=== PATIENT | male | born 1985 | race African-American/Black ===

== ENCOUNTER 2017-01-07 19:49 | Inpatient (IN) | payer MEDICAID, OTHER ==
[~2017-01-07] VITALS: Ht 188 cm; Wt 73.0 kg
[2017-01-07] MEDS ORDERED: SODIUM CHLORIDE 0.9% 1,000 ML IV ONE (23:52)
[2017-01-07] MEDS ORDERED: ONDANSETRON HCL 4MG/2ML VIAL IV STA (23:52)
[2017-01-08 00:33] LABS: CHLORIDE 99 mEq/L (98-107); HEMOGLOBIN. 16.6 g/dL (14.0-18.0); MEAN CORPUSCULAR VOLUME 88.3 fL (80.0-94.0); MEAN PLATELET VOLUME 8.9 fl (7.4-10.4); PLATELET 224 x1000/uL (130-400); RED BLOOD CELL COUNT 5.55 mill/uL (4.7-6.1); RED CELL DISTRIBUTION WIDTH 14.5 % (11.6-14.6)
[2017-01-08 00:41] LABS: CARBON DIOXIDE 29 mEq/L (21-32)
[2017-01-08 00:55] LABS: INR 1.1; PROTHROMBIN TIME 11.7 sec (9.4-11.6)
[2017-01-08 01:00] LABS: CLARITY URINE CLOUDY (CLEAR); COLOR URINE ORANGE (YELLOW); GLUCOSE URINE TRACE (NEGATIVE); KETONES URINE 1+ (NEGATIVE); LEUKOCYTE ESTERASE URINE 1+ (NEGATIVE); NITRITE URINE POSITIVE (NEGATIVE); OCCULT BLOOD URINE 2+ (NEGATIVE); PH URINE 6.5 (4.5-8.0); PROTEIN URINE 3+ (NEGATIVE); SPECIFIC GRAVITY URINE 1.046 (1.005-1.030)
[2017-01-08] MEDS ORDERED: KETOROLAC 30MG/ML VIAL IV ONE (01:15)
[2017-01-08] MEDS ORDERED: CEFTRIAXONE 1 G PREMIX 50 ML IV ONE (01:30)
[2017-01-08 01:37] LABS: PLATELET ESTIMATE NORMAL
[2017-01-08] MEDS ORDERED: ONDANSETRON HCL 4MG/2ML VIAL IV ONE (05:15)
[2017-01-08] MEDS ORDERED: MORPHINE SULFATE 4 MG/ML CPJ (NOT FOR IM USE) IV ONE (05:15)
[2017-01-08 08:00] VITALS: BP 145/95
[2017-01-08] MEDS ORDERED: ACETAMINOPHEN 650MG SUPP PR PRN (08:15)
[2017-01-08] MEDS ORDERED: GUAIFENESIN 200MG/10ML SUGAR FREE UDC PO PRN (08:15)
[2017-01-08] MEDS ORDERED: NA PHOS,M-B/NA PHOS,DI-BA ENEMA 118ML PR PRN (08:15)
[2017-01-08] MEDS ORDERED: MAGNESIUM/ALUMINUM HYDROXIDE/SIMETHICONE 30ML UDC PO PRN (08:15)
[2017-01-08] MEDS ORDERED: ONDANSETRON HCL 4MG/2ML VIAL IV PRN (08:15)
[2017-01-08] MEDS ORDERED: LORAZEPAM 2MG/ML CPJ IV PRN (08:15)
[2017-01-08] MEDS ORDERED: ACETAMINOPHEN 325MG TABLET PO PRN (08:15)
[2017-01-08] MEDS ORDERED: MORPHINE SULFATE 2 MG/ML CPJ (NOT FOR IM USE) IV PRN (08:15)
[2017-01-08] MEDS ORDERED: ACETAMINOPHEN 650MG/20.3ML UDC GT PRN (08:15)
[2017-01-08] MEDS ORDERED: DIPHENHYDRAMINE 50MG/ML VIAL IV PRN (08:15)
[2017-01-08] MEDS ORDERED: DOCUSATE SODIUM 100MG CAPSULE PO PRN (08:15)
[2017-01-08 09:00] VITALS: BP 145/95
[2017-01-08] MEDS ORDERED: IPRATROPIUM/ALBUTEROL 0.5-3(2.5)MG/3ML NEB INH PRN (09:00)
[2017-01-08 09:36] LABS: ETHANOL BLOOD < 10 mg/dL
[2017-01-08] MEDS: MORPHINE SULFATE 4 MG/ML CPJ (NOT FOR IM USE) IV PRN ×3 (10:22→23:13)
[2017-01-08] MEDS: ENOXAPARIN 40MG/0.4ML SYR SUBCUT SCH (10:24)
[2017-01-08] MEDS: DEXT 5%/0.45% NACL 1000ML 1,000 ML IV SCH (10:51)
[2017-01-08] MEDS ORDERED: INFLUENZA VIRUS VACCINE 0.5ML SYR IM ONE (11:45)
[2017-01-08] MEDS ORDERED: IOHEXOL-300 100 ML BOTTLE ONE (14:03)
[2017-01-08] MEDS ORDERED: SODIUM CHLORIDE 0.9% 10ML VIAL ONE (14:03)
[2017-01-08] MEDS: SODIUM CHLORIDE 0.9% INJ 3ML FLUSH IVF SCH ×2 (14:33→20:27)
[2017-01-08 16:00] VITALS: BP 152/103
[2017-01-08] MEDS: CLONIDINE 0.1MG TABLET PO PRN (20:27)
[2017-01-09] VITALS (7 sets, daily range): BP systolic 124–168; BP diastolic 83–105
[2017-01-09] MEDS: MORPHINE SULFATE 4 MG/ML CPJ (NOT FOR IM USE) IV PRN ×3 (05:41→18:38)
[2017-01-09] MEDS: DEXT 5%/0.45% NACL 1000ML 1,000 ML IV SCH ×2 (05:44→21:20)
[2017-01-09] MEDS: SODIUM CHLORIDE 0.9% INJ 3ML FLUSH IVF SCH ×3 (05:44→21:21)
[2017-01-09 05:53] LABS: BASOPHILS % 0.1 % (0.0-2.0); EOSINOPHILS % 1.2 % (0.0-5.0); HEMATOCRIT. 45.3 % (42.0-52.0); HEMOGLOBIN. 15.4 g/dL (14.0-18.0); LYMPHOCYTES % 12.6 % (20.0-50.0); MEAN CORPUSCULAR HEMOGLOBIN 30.4 pg (28.0-32.0); MEAN CORPUSCULAR VOLUME 89.6 fL (80.0-94.0); MEAN PLATELET VOLUME 8.9 fl (7.4-10.4); MONOCYTES % 7.6 % (2.0-8.0); NEUTROPHILS % 78.5 % (40.0-76.0); PLATELET 166 x1000/uL (130-400); RED BLOOD CELL COUNT 5.06 mill/uL (4.7-6.1); RED CELL DISTRIBUTION WIDTH 14.7 % (11.6-14.6)
[2017-01-09 07:18] LABS: CARBON DIOXIDE 30 mEq/L (21-32); CHLORIDE 96 mEq/L (98-107); HDL CHOLESTEROL 32 mg/dL (40-59); LDL CHOLESTEROL 59 mg/dL (5-100)
[2017-01-09] MEDS: CLONIDINE 0.1MG TABLET PO PRN (08:33)
[2017-01-09] MEDS: ENOXAPARIN 40MG/0.4ML SYR SUBCUT SCH (08:34)
[2017-01-09] MEDS: HYDROCODONE/ACETAMINOPHEN 5/325MG TABLET PO PRN ×2 (11:21→21:43)
[2017-01-09 13:09] LABS: *AMPHETAMINES SCREEN URINE NEGATIVE (NEGATIVE); *BARBITURATES SCREEN URINE NEGATIVE (NEGATIVE); *BENZODIAZEPINES SCREEN URINE NEGATIVE (NEGATIVE); *COCAINE SCREEN URINE PRESUMTIVE POSITIVE (NEGATIVE); CANNABINOID URINE SCREEN PRESUMTIVE POSITIVE (NEGATIVE); METHADONE URINE SCREEN NEGATIVE (NEGATIVE); OPIATES URINE SCREEN PRESUMTIVE POSITIVE (NEGATIVE); PHENCYCLIDINE URINE SCREEN NEGATIVE (NEGATIVE)
[2017-01-09] MEDS: AMLODIPINE 10MG TABLET PO SCH (21:18)
[2017-01-10] VITALS: BP 131/87
[2017-01-10] MEDS: DEXT 5%/0.45% NACL 1000ML 1,000 ML IV SCH ×2 (00:01→13:21)
[2017-01-10 04:00] VITALS: BP 127/83
[2017-01-10] MEDS: HYDROCODONE/ACETAMINOPHEN 5/325MG TABLET PO PRN (04:38)
[2017-01-10] MEDS: SODIUM CHLORIDE 0.9% INJ 3ML FLUSH IVF SCH ×3 (05:30→22:00)
[2017-01-10 08:00] VITALS: BP 135/87
[2017-01-10] MEDS: AMLODIPINE 10MG TABLET PO SCH (09:52)
[2017-01-10 12:00] VITALS: BP 128/77
[2017-01-10] MEDS: MORPHINE SULFATE 4 MG/ML CPJ (NOT FOR IM USE) IV PRN (12:12)
[2017-01-10 16:00] VITALS: BP 120/75
[2017-01-10] MEDS: METOCLOPRAMIDE HCL 10MG/2ML VIAL IV SCH (18:42)
[2017-01-10] MEDS: FAMOTIDINE 20MG/2ML VIAL IV SCH (18:43)
[2017-01-10 20:00] VITALS: BP 129/81
[2017-01-11] VITALS: BP 124/72
[2017-01-11] MEDS: METOCLOPRAMIDE HCL 10MG/2ML VIAL IV SCH ×2 (00:23→06:59)
[2017-01-11 04:00] VITALS: BP 122/75
[2017-01-11] MEDS: SODIUM CHLORIDE 0.9% INJ 3ML FLUSH IVF SCH (07:53)
[2017-01-11] MEDS: DEXT 5%/0.45% NACL 1000ML 1,000 ML IV SCH (07:53)
[2017-01-11 08:00] VITALS: BP 130/78
[2017-01-11] MEDS: FAMOTIDINE 20MG/2ML VIAL IV SCH (09:00)
[2017-01-11] MEDS: AMLODIPINE 10MG TABLET PO SCH (09:01)
[2017-01-11 12:01] VITALS: BP 134/84
[2017-01-11 13:05] VITALS: BP 110/60
== END 2017-01-11 14:35 | disposition home or self-care (01) | DRG 282 ==
LOC: ER 20:39 → ENRESERV 01-08 06:55 → 6EST 01-08 08:27
PROVIDERS: ADMIT Family Medicine; ATTEND Family Medicine
DX: K85.90 Acute pancreatitis without necrosis or infection, unspecified (principal); E86.0 Dehydration; Z91.010 Allergy to peanuts
CPT/HCPCS: 36415; 71010; 74000; 74177; 76700; 80053; 80061; 80305; 81001; 83690; 85025; 85610; 93005; 96361; 96365; 96375; 96376; 99285; A4216; G0482; J0696; J1650; J1885; J2270; J2405; J2765; J3490; J7030; Q9967

== ENCOUNTER 2017-07-13 12:17 | Inpatient (IN) | payer SELFPAY ==
[~2017-07-13] VITALS: Ht 370.8 cm; Wt 72.9 kg
[2017-07-13] MEDS ORDERED: ACETAMINOPHEN 325MG TABLET ONE (13:47)
[2017-07-13] MEDS ORDERED: ACETAMINOPHEN 325MG TABLET PO STA (14:26)
[2017-07-13 15:18] LABS: HEMATOCRIT. 44.3 % (42.0-52.0); HEMOGLOBIN. 15.4 g/dL (14.0-18.0); MEAN CORPUSCULAR HEMOGLOBIN 29.9 pg (28.0-32.0); MEAN CORPUSCULAR VOLUME 86.4 fL (80.0-94.0); MEAN PLATELET VOLUME 9.5 fl (7.4-10.4); PLATELET 228 x1000/uL (130-400); RED BLOOD CELL COUNT 5.13 mill/uL (4.7-6.1); RED CELL DISTRIBUTION WIDTH 14.6 % (11.6-14.6)
[2017-07-13 15:21] LABS: CHLORIDE 99 mEq/L (98-107)
[2017-07-13 15:34] LABS: PROTHROMBIN TIME 10.9 sec (9.4-11.6)
[2017-07-13 15:53] LABS: PLATELET ESTIMATE NORMAL
[2017-07-13] MEDS ORDERED: MORPHINE SULFATE 4 MG/ML CPJ (NOT FOR IM USE) IV STA (17:58)
[2017-07-13] MEDS ORDERED: FAMOTIDINE 20MG/2ML VIAL IV STA (17:58)
[2017-07-13] MEDS ORDERED: SODIUM CHLORIDE 0.9% 1,000 ML IV ONE (17:58)
[2017-07-13] MEDS ORDERED: ONDANSETRON HCL 4MG/2ML VIAL IV STA (17:58)
[2017-07-13 18:59] LABS: CLARITY URINE CLEAR (CLEAR); COLOR URINE DARK YELLOW (YELLOW); KETONES URINE 2+ (NEGATIVE); LEUKOCYTE ESTERASE URINE NEGATIVE (NEGATIVE); NITRITE URINE NEGATIVE (NEGATIVE); OCCULT BLOOD URINE NEGATIVE (NEGATIVE); PH URINE 5.5 (4.5-8.0); PROTEIN URINE 2+ (NEGATIVE); SPECIFIC GRAVITY URINE 1.042 (1.005-1.030)
[2017-07-13 19:20] LABS: METHADONE URINE SCREEN NEGATIVE (NEGATIVE); OPIATES URINE SCREEN NEGATIVE (NEGATIVE)
[2017-07-13 19:21] LABS: *AMPHETAMINES SCREEN URINE NEGATIVE (NEGATIVE); *BARBITURATES SCREEN URINE NEGATIVE (NEGATIVE); *BENZODIAZEPINES SCREEN URINE NEGATIVE (NEGATIVE); *COCAINE SCREEN URINE PRESUMTIVE POSITIVE (NEGATIVE); CANNABINOID URINE SCREEN PRESUMTIVE POSITIVE (NEGATIVE); PHENCYCLIDINE URINE SCREEN NEGATIVE (NEGATIVE)
[2017-07-13] MEDS ORDERED: ACETAMINOPHEN 325MG TABLET PO PRN (21:15)
[2017-07-13] MEDS ORDERED: GUAIFENESIN 200MG/10ML SUGAR FREE UDC PO PRN (21:15)
[2017-07-13] MEDS ORDERED: ONDANSETRON HCL 4MG/2ML VIAL IV PRN (21:15)
[2017-07-13] MEDS ORDERED: DOCUSATE SODIUM 100MG CAPSULE PO PRN (21:15)
[2017-07-13] MEDS ORDERED: CLONIDINE 0.1MG TABLET PO PRN (21:15)
[2017-07-13] MEDS ORDERED: IPRATROPIUM/ALBUTEROL 0.5-3(2.5)MG/3ML NEB INH PRN (21:15)
[2017-07-13] MEDS ORDERED: MAGNESIUM/ALUMINUM HYDROXIDE/SIMETHICONE 30ML UDC PO PRN (21:15)
[2017-07-13] MEDS ORDERED: ZOLPIDEM TARTRATE 5MG TABLET PO PRN (21:15)
[2017-07-13] MEDS ORDERED: NA PHOS,M-B/NA PHOS,DI-BA ENEMA 118ML PR PRN (21:15)
[2017-07-13] MEDS ORDERED: LORAZEPAM 0.5MG TABLET PO PRN (21:15)
[2017-07-13] MEDS ORDERED: TRAMADOL 50MG TABLET PO PRN (21:15)
[2017-07-13] MEDS ORDERED: DIPHENHYDRAMINE 50MG/ML VIAL IV PRN (21:15)
[2017-07-13] MEDS: KETOROLAC 15MG/ML VIAL IV PRN (21:27)
[2017-07-13 21:40] VITALS: BP 131/72
[2017-07-13] MEDS: SODIUM CHLORIDE 0.9% 1,000 ML IV SCH (22:58)
[2017-07-13] MEDS: HYDRALAZINE HCL 50MG TABLET PO SCH (22:58)
[2017-07-14] VITALS: BP 118/60
[2017-07-14 04:26] VITALS: BP 148/81
[2017-07-14] MEDS: SODIUM CHLORIDE 0.9% 1,000 ML IV SCH ×3 (05:55→18:06)
[2017-07-14] MEDS: HYDRALAZINE HCL 50MG TABLET PO SCH ×3 (05:55→21:18)
[2017-07-14] MEDS: PANTOPRAZOLE SODIUM 40 MG/VIAL IV SCH (08:15)
[2017-07-14] MEDS: KETOROLAC 15MG/ML VIAL IV PRN ×3 (08:21→21:19)
[2017-07-14] MEDS ORDERED: PNEUMOCOCCAL 23-VAL P-SAC VAC 0.5 ML IM ONE (10:00)
[2017-07-14 10:44] LABS: CHLORIDE 102 mEq/L (98-107)
[2017-07-14 10:48] LABS: AMYLASE 349 IU/L (25-115)
[2017-07-14 20:00] VITALS: BP 140/80
[2017-07-15] VITALS: BP 136/75
[2017-07-15] MEDS: SODIUM CHLORIDE 0.9% 1,000 ML IV SCH ×2 (01:04→09:26)
[2017-07-15 04:00] VITALS: BP 130/72
[2017-07-15] MEDS: HYDRALAZINE HCL 50MG TABLET PO SCH (06:00)
[2017-07-15 08:00] VITALS: BP 125/72
[2017-07-15] MEDS: PANTOPRAZOLE SODIUM 40 MG/VIAL IV SCH (09:26)
[2017-07-15 12:00] VITALS: BP 130/76
== END 2017-07-15 14:15 | disposition home or self-care (01) | DRG 282 ==
LOC: ER 13:03 → 8WST 20:32 → EDBEDREQ 20:40 → ENRESERV 20:42
PROVIDERS: ADMIT Internal Medicine; ATTEND Internal Medicine
DX: K85.90 Acute pancreatitis without necrosis or infection, unspecified (principal); I10 Essential (primary) hypertension; F17.210 Nicotine dependence, cigarettes, uncomplicated; Z23 Encounter for immunization
CPT/HCPCS: 36415; 71045; 74176; 80053; 80061; 80305; 81003; 82150; 83036; 83690; 85025; 85610; 85730; 96374; 96375; 99285; C9113; J1885; J2270; J2405; J3490; J7030